=== PATIENT | male | born 1975 | race Caucasian/White ===

== ENCOUNTER → 2017-04-05 | Outpatient (CLI) | payer BC ==
[2017-04-05 07:27] LABS: Basophils # (A) 0.1 k/uL (0-0.2); Basophils % (A) 1 %; CH 29.9; CHCM 34.5; Eosinophils # (A) 0.2 k/uL (0-0.7); Eosinophils % (A) 3 %; HCT 44.2 % (39.0-53.0); HDW 2.78; HGB 15.3 gm/dL (13.0-17.5); Luc # (Auto) 0.27; Luc % (Auto) 4; Lymphocytes # (A) 2.5 k/uL (1.0-4.8); Lymphocytes % (A) 35 %; MCH 30.2 pg (25.0-35.0); MCHC 34.7 g/dL (31.0-37.0); MCV 86.9 fL (80.0-100.0); Mean Platelet Volume 7.1; Monocytes # (A) 0.5 k/uL (0-1.0); Monocytes % (A) 8 %; Neutrophils # (A) 3.5 k/uL (1.3-7.7); Neutrophils % (A) 50 %; RBC 5.08 m/uL (4.30-5.90); RDW 14.1 % (11.5-15.5); WBC (Perox) 6.57
[2017-04-05 10:52] LABS: ALT 39 U/L (21-72); AST 21 U/L (17-59); Alkaline Phosphatase 115 U/L (38-126); Anion Gap 11 mmol/L; Blood Urea Nitrogen 17 mg/dL (9-20); Calcium 9.4 mg/dL (8.4-10.2); Carbon Dioxide 24 mmol/L (22-30); Chloride 107 mmol/L (98-107); Cholesterol 294 mg/dL (<200); Glucose 105 mg/dL (74-99); HDL Cholesterol 33 mg/dL (40-60); Non-African American GFR(MDRD) >60 (>60 ml/min/1.73 sqM); Potassium 3.9 mmol/L (3.5-5.1); Sodium 142 mmol/L (137-145); Total Bilirubin 0.4 mg/dL (0.2-1.3); Total Protein 7.1 g/dL (6.3-8.2)
[2017-04-05 11:03] LABS: Triglycerides 583 mg/dL (<150)
[2017-04-05 11:19] LABS: Prostate Specific Antigen 0.18 ng/mL (0.00-4.00)
== END | disposition home or self-care (01) ==
LOC: LABWHC1 07:10
PROVIDERS: ATTEND Internal Medicine
DX: N50.819 Testicular pain, unspecified (principal); R00.2 Palpitations
CPT/HCPCS: 36415; 80053; 80061; 84153; 84439; 84443; 85025

== ENCOUNTER → 2017-04-13 | Outpatient (CLI) | payer BC ==
--- NOTE | 2017-04-13 16:47 | US ---
EXAMINATION TYPE: US scrotum with doppler. Grayscale and color Doppler Duplex imaging performed of louise beard scrotum. DATE OF EXAM: 04/13/2017 COMPARISON: NONE CLINICAL HISTORY: N50.819 Testicular Pain. Right testicular pain x few weeks. Vasectomy x 6 years. No swelling. EXAM MEASUREMENTS: TESTICLES: Right Testicle: 4.2 x 3.1 x 2.4 cm Left Testicle: 4.3 x 2.3 x 2.6 cm EPIDIDYMIS HEAD: Right Epididymis: 0.9 x 0.9 x 0.8 cm Left Epididymis: 1.0 x .0.9 x 0.9 cm Doppler performed to assess for testicular vascularity; good bilateral color flow and waveforms are s een. There is no evidence of testicular torsion. Presence of hydroceles: small bilateral Presence of varicoceles: no No masses or lesions seen in bilateral testicles. IMPRESSION: No evidence of testicular torsion or mass. There are minimal hydroceles.
== END | disposition home or self-care (01) ==
LOC: RADUSWWP 16:14
PROVIDERS: ATTEND Internal Medicine
DX: N43.3 Hydrocele, unspecified (principal); N50.819 Testicular pain, unspecified
CPT/HCPCS: 76870; 93975

== ENCOUNTER → 2017-11-08 | Outpatient (CLI) | payer BC ==
--- NOTE | 2017-11-08 13:50 | XR ---
EXAMINATION TYPE: XR chest 2V DATE OF EXAM: 11/08/2017 COMPARISON: None HISTORY: Cough for a few months TECHNIQUE: Frontal and lateral views of the chest are obtained. FINDINGS: There is no focal air space opacity, pleural effusion, or pneumothorax seen. The cardiac silhouette size is within normal limits. The osseous structures are intact. IMPRESSION: No acute cardiopulmonary process.
== END | disposition home or self-care (01) ==
LOC: RADXRMAIN 13:01
PROVIDERS: ATTEND Internal Medicine
DX: R05 Cough (principal)
CPT/HCPCS: 71046

== ENCOUNTER 2018-02-10 21:26 | Emergency (ER) | payer BC ==
[2018-02-10 21:31] VITALS: RESP 18
[2018-02-10] MEDS ORDERED: diphenhydrAMINE 2% CREAM 28.4 GM TUBE TOPICAL STA (22:54)
[2018-02-10] MEDS ORDERED: DOXYCYCLINE MONOHYDRATE 100 MG CAPSULE PO STA (22:58)
--- NOTE | 2018-02-10 22:59 | ED ---
Skin/Abscess/FB HPI - General Chief complaint: Skin/Abscess/Foreign Body Stated complaint: Tick on rt leg Time Seen by Provider: 02/10/18 21:54 Source: patient Mode of arrival: ambulatory Limitations: no limitations - History of Present Illness Initial comments: 43-year-old male patient presents to the emergency department today for evaluation of possible tick bite. Patient reports that he was camping over the last weekend. States he did find 2 ticks on his thigh. Patient states that since Tuesday he has had a erythematous area to the right upper thigh. States it has been itchy. States that the area did seem a bit slowly was considered there was a tick. States that they did peel skin back and they did not find any ticks present. Patient denies any blistering to the area. Denies any significant pain. He has not had any fevers or chills. Denies any bullseye type rash. Patient denies any recent shortness breath, chest pain, abdominal pain, nausea, vomiting, diarrhea, constipation, back pain, numbness, tingling, dizziness, weakness, hematuria, dysuria, urinary urgency, urinary frequency, headache, visual changes, or any other complaints. - Related Data Home Medications Medication Instructions Recorded Confirmed Fertility Supplement 1 tab PO DAILY 02/10/18 02/10/18 Allergies Allergy/AdvReac Type Severity Reaction Status Date / Time No Known Allergies Allergy Verified 02/10/18 22:07 Review of Systems ROS Statement: Those systems with pertinent positive or pertinent negative responses have been documented in the HPI. ROS Other: All systems not noted in ROS Statement are negative. Past Medical History Past Medical History: Hyperlipidemia, Mitral Valve Prolapse (MVP) History of Any Multi-Drug Resistant Organisms: None Reported Past Surgical History: Hernia Repair Additional Past Surgical History / Comment(s): skin graft, reversed vasectomy Past Psychological History: No Psychological Hx Reported Smoking Status: Never smoker Past Alcohol Use History: None Reported Past Drug Use History: None Reported General Exam Limitations: no limitations General appearance: alert, in no apparent distress, other (This is a well- developed, well-nourished adult male patient in no acute distress. Vital signs upon presentation are temperature 98.7F, pulse 57, respirations 18, blood pressure 138/70, pulse ox 98% on room air.) Eye exam: Present: normal appearance, PERRL, EOMI. Absent: scleral icterus, conjunctival injection, periorbital swelling ENT exam: Present: normal exam, normal oropharynx, mucous membranes moist Respiratory exam: Present: normal lung sounds bilaterally. Absent: respiratory distress, wheezes, rales, rhonchi, stridor Cardiovascular Exam: Present: regular rate, normal rhythm, normal heart sounds. Absent: systolic murmur, diastolic murmur, rubs, gallop, clicks GI/Abdominal exam: Present: soft, normal bowel sounds. Absent: distended, tenderness, guarding, rebound, rigid Extremities exam: Present: full ROM, normal capillary refill, other (Patient has circular area of erythema noted to the right anterior upper thigh. There is a central area of abrasion noted. No evidence of embedded tick. This is warm to touch. Non-petechial non-vesicular.). Absent: normal inspection, tenderness, pedal edema, joint swelling, calf tenderness Neurological exam: Present: alert, oriented X3, CN II-XII intact Psychiatric exam: Present: normal affect, normal mood Skin exam: Present: warm, dry, intact, normal color. Absent: rash Course Vital Signs 02/10/18 02/10/18 21:27 23:05 Temperature 98.7 F 98.2 F Pulse Rate 57 L 67 Respiratory 18 18 Rate Blood Pressure 138/70 124/70 O2 Sat by Pulse 98 96 Oximetry Medical Decision Making - Medical Decision Making 43-year-old male patient presented to the emergency department today for evaluation of erythematous lesion to the right upper thigh. Physical examination did reveal circular area of erythema with a central area of abrasion to the right upper anterior thigh. Lesion was nonvesicular and nonpetechial. Patient states the area does itch. It is warm to touch. This did not appear to be bull's-eye rash. Patient did have 2 ticks on his leg from a camping trip over the weekend he noticed this after he solid 6. Given patient 's recent contact with ticks we will give a dose of 200 mg of doxycycline. He is instructed to apply topical Benadryl or take oral Benadryl for symptom relief. He is instructed to apply cool compresses. Return parameters discussed in detail. He is instructed to follow-up with his primary care physician for recheck in 1-2 days. He verbalizes understanding and agrees with this plan. Disposition Clinical Impression: Insect bite Disposition: HOME SELF-CARE Condition: Good Instructions: Insect Bite or Sting (ED) Additional Instructions: Apply cool compresses to the area. Use Benadryl and topical Benadryl cream for symptom relief. Follow-up through primary care physician for recheck in 1-2 days. Return here immediately for any new, worsening, or concerning symptoms. Is patient prescribed a controlled substance at d/c from ED?: No Referrals: Shreya Trevizo MD [Primary Care Provider] - 1-2 days Time of Disposition: 22:59
[2018-02-10 23:06] VITALS: BP 124/70; PULSE 67; TEMP 98.2
== END 2018-02-10 23:09 | disposition home or self-care (01) ==
LOC: EC 21:26
DX: S70.361A Insect bite (nonvenomous), right thigh, initial encounter (principal); Z79.899 Other long term (current) drug therapy; W57.XXXA Bitten or stung by nonvenomous insect and other nonvenomous arthropods, initial encounter
CPT/HCPCS: 99282

== ENCOUNTER 2020-06-04 12:40 | Emergency (ER) | payer BC ==
[2020-06-04 12:59] VITALS: BP 126/81; PULSE 74; RESP 18; TEMP 98
[2020-06-04] MEDS ORDERED: LIDOCAINE 1% INJ 10MG/ML (20 ML MDV) SQ ONE (13:12)
--- NOTE | 2020-06-04 13:42 | ED ---
Wound/Laceration HPI - General Chief Complaint: Wound/Laceration Stated Complaint: finger lac Time Seen by Provider: 06/04/20 13:00 Source: patient, RN notes reviewed, old records reviewed Mode of arrival: ambulatory Limitations: no limitations - History of Present Illness Initial Comments: 45-year-old male presents emergency department today with complaints of right ring fingernail avulsion while he was gardening today. Patient reports seems to be 80% of the way off. Patient reports he's had no other complaints. Denies any pain with range of motion of the finger. - Related Data Home Medications Medication Instructions Recorded Confirmed Fertility Supplement 1 tab PO DAILY 02/10/18 02/10/18 Allergies Allergy/AdvReac Type Severity Reaction Status Date / Time No Known Allergies Allergy Verified 02/10/18 22:07 Review of Systems ROS Statement: Those systems with pertinent positive or pertinent negative responses have been documented in the HPI. ROS Other: All systems not noted in ROS Statement are negative. Past Medical History Past Medical History: Hyperlipidemia, Mitral Valve Prolapse (MVP) History of Any Multi-Drug Resistant Organisms: None Reported Past Surgical History: Hernia Repair Additional Past Surgical History / Comment(s): skin graft, reversed vasectomy Past Psychological History: No Psychological Hx Reported Past Alcohol Use History: None Reported Past Drug Use History: None Reported General Exam - General Exam Comments Initial Comments: 45-year-old male. No distress. Limitations: no limitations General appearance: alert, in no apparent distress Head exam: Present: atraumatic, normocephalic, normal inspection Eye exam: Present: normal appearance, PERRL, EOMI. Absent: scleral icterus, conjunctival injection, periorbital swelling ENT exam: Present: normal exam, mucous membranes moist Neck exam: Present: normal inspection. Absent: tenderness, meningismus, lymphadenopathy Respiratory exam: Present: normal lung sounds bilaterally. Absent: respiratory distress, wheezes, rales, rhonchi, stridor Cardiovascular Exam: Present: regular rate, normal rhythm, normal heart sounds. Absent: systolic murmur, diastolic murmur, rubs, gallop, clicks Right Upper Arm exam: Present: normal inspection, full ROM Elbow exam: Present: normal inspection Forearm Wrist exam: Present: normal inspection, full ROM Hand Wrist exam: Present: full ROM. Absent: normal inspection (Patient has right ring finger nail beds partially avulsed and hanging by 20% of intact nailbed. ) Neuro motor exam: Present: wrist extension intact, thumb opposition intact, thumb IP flexion intact, thumb adduction intact, fingers 2-5 abduction intact Neurosensory exam: Present: 2-point discrimination Vascular: Present: normal capillary refill Neurological exam: Present: alert, oriented X3, CN II-XII intact Psychiatric exam: Present: normal affect, normal mood Skin exam: Present: warm, dry, intact, normal color. Absent: rash Course Vital Signs 06/04/20 12:57 Temperature 98.0 F Pulse Rate 74 Respiratory 18 Rate Blood Pressure 126/81 O2 Sat by Pulse 98 Oximetry Procedures - Laceration Laceration #1 Site: other (R ring finger nail) Depth: simple, single layer Anesthetic Used: lidocaine 1% Anesthesia Technique: nerve block Pre-repair: wound explored, irrigated extensively Type of Sutures: other (removed nail entirely and no deep laceration. Pt did not require stitches. ) Patient Tolerated Procedure: well, no complications Additional Comments: Finger bandaged Medical Decision Making - Medical Decision Making 45-year-old male presents emergency room with partial avulsion of his right ring finger after gardening. Patient's nail was 80% avulsed. Patient had nerve block and the remainder of the nail was removed. Patient didn't require any sutures to the nail bed. Patient will be discharged and Patient will have the nail grow back. Advised monitoring for infection. Patient is agreeable treatment plan. Disposition Clinical Impression: Nail avulsion Disposition: HOME SELF-CARE Condition: Good Instructions (If sedation given, give patient instructions): Nail Avulsion (ED) Additional Instructions: Patient advised to keep the area clean and wash with soap and water. Holding pressure dressing and using the metal finger splint to prevent any further trauma. Once the nail does grow Patient shows a keep it lifted so doesn't form an ingrown nail. Is patient prescribed a controlled substance at d/c from ED?: No Referrals: hSreya Trevizo MD [Primary Care Provider] - 1-2 days Time of Disposition: 08:04
--- NOTE | 2020-06-11 10:35 | CDI ---
Dear Sowmya Manuel PA-C Please do addendum for length of laceration repaired, required Thank you, Maria T Chavarria, Industrial Radiographer If you have any questions, please contact Pharmaceutical Laboratory Technician at [phone] [facility]
== END 2020-06-04 13:48 | disposition home or self-care (01) ==
LOC: EC 12:40
DX: S61.304A Unspecified open wound of right ring finger with damage to nail, initial encounter (principal); Y93.H2 Activity, gardening and landscaping
CPT/HCPCS: 99283; 11730; J2001

== ENCOUNTER → 2025-01-23 | Outpatient (CLI) | payer OTHER ==
--- NOTE | 2025-01-23 15:52 | XR ---
EXAMINATION TYPE: XR shoulder complete BILAT DATE OF EXAM: 01/23/2025 12:17 PM COMPARISON: None CLINICAL INDICATION: Male, 49 years old with history of R22.2 swelling/mass/lump in chest; PHH, pain TECHNIQUE: 3 views on each side FINDINGS: The AC joints appear congruent and intact. Subacromial space is preserved on both sides. Small deline ation to the greater tuberosities. No acute fracture, subluxation, or dislocation seen on either side . IMPRESSION: Bilateral shoulders without acute osseous abnormality seen. [facility], Workstation: [id number], 01/23/2025 3:50 PM
--- NOTE | 2025-01-23 15:54 | XR ---
EXAMINATION TYPE: XR cervical spine 3 views XR thoracic spine 3V DATE OF EXAM: 01/23/2025 12:17 PM COMPARISON: None CLINICAL INDICATION: Male, 49 years old with history of M54.6 thoracic back pain; PHH, pain FINDINGS: Cervical spine: No predental space widening or prevertebral soft tissue swelling. Slight reversal of the normal cervi pat lordosis. Disc interspaces are maintained. Alignment is preserved. Normal odontoid view. Thoracic spine: 12 rib bearing thoracic vertebral bodies. All pedicles are visualized. Vertebral body heights are pre served. As trace grade 1 anterolisthesis near the thoracolumbar junction. Remaining alignment is main tained. IMPRESSION: 1. Cervical spine: Reversal of the normal cervical lordosis could be positional or due to muscle spas m. Otherwise, no specific radiographic abnormality seen. 2. Thoracic spine: There is grade 1 anterolisthesis near the thoracolumbar junction. Possibly on a de generative basis. Otherwise, no vertebral compression collapse or malalignment. [facility], , 01/23/2025 3:52 PM
--- NOTE | 2025-01-23 15:55 | XR ---
EXAMINATION TYPE: XR chest 2V DATE OF EXAM: 01/23/2025 12:17 PM COMPARISON: 11/08/2017 CLINICAL INDICATION: Male, 49 years old with history of R22.2 swelling mass lump in chest, , TECHNIQUE: Frontal and lateral views FINDINGS: Heart is normal size. Aorta and pulmonary vasculature within normal limits. No consolidation or pleur al effusion. IMPRESSION: No acute cardiopulmonary process. [facility], , 01/23/2025 3:52 PM
== END | disposition home or self-care (01) ==
LOC: RADXRMAIN 11:44
PROVIDERS: ATTEND Internal Medicine
DX: R22.2 Localized swelling, mass and lump, trunk (principal); M43.15 Spondylolisthesis, thoracolumbar region
CPT/HCPCS: 71046; 72040; 72070

== ENCOUNTER → 2025-02-21 | Outpatient (CLI) | payer OTHER ==
--- NOTE | 2025-02-21 08:33 | US ---
EXAMINATION TYPE: US liver DATE OF EXAM: 02/21/2025 COMPARISON: NONE CLINICAL INDICATION: Male, 50 years old with history of R74.8 elevated liver enzymes; Elevated liver enzymes. Hx umbilical hernia surgery. TECHNIQUE: Grayscale and color Doppler imaging of the right upper quadrant. FINDINGS: EXAM MEASUREMENTS: Liver Length: 15.6 cm Gallbladder Wall: 0.16 cm CBD: Obscured Right Kidney: 10.3 x 5.4 x 4.9 cm FOOD MANAGER NOTES: Exam is limited due to gas. Pancreas: Not well seen Liver: *Increased echogenicity, appears coarse. *Hypoechoic area seen adjacent to the gallbladder: 1.3 x 1.7 x 1.6 cm. *Indistinct, hypoechoic area seen right lobe: 3.2 x 3.1 x 3.6 cm. Gallbladder: 2 hyperechoic areas seen within that appear to be attached to the gallbladder wall: # 1: 0.4 x 0.4 x 0.4 cm. #2: 0.3 x 0.4 x 0.5 cm. Evidence for sonographic Strong's sign: No CBD: Obscured Right Kidney: No hydronephrosis or masses seen IMPRESSION: 1. No evidence for acute process. 2. Hepatic steatosis with suspected focal fatty sparing around the gallbladder fossa. This can be co nfirmed with MRI liver mass protocol. 3. Gallbladder wall polyp measuring up to 5 mm versus adherent gallstones. Attention on short-term f ollow-up ultrasound in 6 months. [facility], , 02/21/2025 8:31 AM
== END | disposition home or self-care (01) ==
LOC: RADUSWWP 07:30
PROVIDERS: ATTEND Internal Medicine
DX: K76.0 Fatty (change of) liver, not elsewhere classified (principal); R74.8 Abnormal levels of other serum enzymes
CPT/HCPCS: 76705

== ENCOUNTER → 2025-03-11 | Outpatient (CLI) | payer OTHER ==
--- NOTE | 2025-03-11 20:29 | MR ---
EXAMINATION TYPE: MR liver wo/w con DATE OF EXAM: 03/11/2025 7:39 PM INDICATION: Patient age:Male; 50 years old; Reason for study: K82.4 CHOLESTEROLOSIS OF GALLBLADDER; PHH. Elevated liver enzymes COMPARISON: Ultrasound liver 02/21/2025 TECHNIQUE: Multiplanar multi-sequence imaging was performed without and with IV contrast. The patie nt was given 7.5 ccs of Gadobutrol intravenously and dynamic imaging was performed. Post IV contrast subtraction images were also submitted for review. FINDINGS: LOWER CHEST: No gross irregularity. ABDOMEN Liver: Geographic regions of dropout of signal on out of phase imaging within the liver. No suspiciou s enhancing hepatic lesion. Noncirrhotic morphology. Gallbladder and Bile ducts: Unremarkable. No distinct gallbladder wall thickening or filling defects to suggest cholelithiasis. Pancreas: Unremarkable. Spleen: Unremarkable. Adrenal glands: Unremarkable. Kidneys: Unremarkable. Stomach and Bowel: Unremarkable as visualized. Peritoneum: No evidence of pneumoperitoneum, free fluid, or adenopathy. Vasculature: Unremarkable. No aortic aneurysm. Abdominal wall: Unremarkable. Musculoskeletal: The osseous structures appear intact. IMPRESSION: 1. No evidence of abdominal mass. 2. Geographic regions of hepatic steatosis. [facility], , 03/11/2025 8:27 PM
== END | disposition home or self-care (01) ==
LOC: RADMRIMAIN 18:25
PROVIDERS: ATTEND Internal Medicine
DX: K82.4 Cholesterolosis of gallbladder (principal); K76.0 Fatty (change of) liver, not elsewhere classified
CPT/HCPCS: 74183; A9585